=== PATIENT | male | born 1960 | race Caucasian/White ===

== ENCOUNTER 2022-08-26 17:21 | Emergency (ER) | payer BC ==
[~2022-08-26] VITALS: Ht 172.7 cm; Wt 79.8 kg
[2022-08-26 18:07] VITALS: BP_SYST 172
[2022-08-26] MEDS ORDERED: IBUPROFEN 600 MG TABLET PO ONE (20:45)
[2022-08-26] MEDS ORDERED: DIPHTH,PERTUSS(ACELL),TET VAC 0.5 ML VIAL (Tdap) I.M. ONE (20:45)
[2022-08-26] MEDS ORDERED: ceFAZolin SODIUM 2 GM VIAL IM ONE (23:15)
[2022-08-26] MEDS ORDERED: BACITRACIN 1 GM OINT TP ONE (23:41)
[2022-08-26] MEDS ORDERED: BACITRACIN ZINC 15 GM TOPICAL OINTMENT TP SCH (23:45)
[2022-08-27 00:01] VITALS: BP_SYST 131
[2022-08-27] MEDS ORDERED: BACI15OI13 TP (00:14)
[2022-08-27] MEDS ORDERED: HYDR-3917 PO (00:14)
[2022-08-27] MEDS ORDERED: CEPH250C PO (00:14)
[2022-08-27] MEDS ORDERED: ceFAZolin SODIUM 1 GM VIAL ONE (00:25)
[2022-08-27] MEDS ORDERED: IBUPROFEN 600 MG TABLET ONE (00:26)
[2022-08-27] MEDS ORDERED: LIDOCAINE 1%, 20 ML MDV 20 ML ONE (00:27)
== END 2022-08-27 00:15 | disposition home or self-care (01) ==
LOC: SED 17:21
DX: S56.122A Laceration of flexor muscle, fascia and tendon of left index finger at forearm level, initial encounter (principal); Z79.899 Other long term (current) drug therapy; W45.8XXA Other foreign body or object entering through skin, initial encounter; Y93.89 Activity, other specified; Y92.89 Other specified places as the place of occurrence of the external cause; Y99.8 Other external cause status
CPT/HCPCS: 99284; 12042; 73120; 90715; 96372; 90471; J0690; J2001